=== PATIENT | female | born 1970 | race Caucasian/White ===

== ENCOUNTER 2019-01-08 10:41 | Outpatient (REF) | payer MEDICAID, SELFPAY ==
[2019-01-08 22:10] LABS: Abs Immature Grans 0.01 k/cumm (0.0-0.09); Absolute Basophil Count 0.02 k/cumm (0.0-0.2); Absolute Eosinophil Count 0.13 k/cumm (0.0-0.7); Absolute Lymphocyte Count 1.86 k/cumm (1.2-3.4); Absolute Monocyte Count 0.68 k/cumm (0.11-0.7); Absolute Neutrophil Count 4.34 k/cumm (1.2-6.7); Basophils % 0.3; Eosinophils % 1.8; HCT 50.5 % (36.0-46.0); HGB 16.9 g/dL (12.0-15.5); Immature Grans % 0.1; Lymphocytes % 26.4; Mean Corp. HGB Concentration 33.5 g/dL (32.0-36.0); Mean Corpuscular Hemoglobin 29.7 pg (27.0-33.0); Mean Corpuscular Volume 88.8 fL (80-95); Mean Platelet Volume 12.5 fL (8.0-11.0); Monocytes % 9.7; Neutrophils % 61.7; Platelet Count 179 x1000/uL (130-400); RBC 5.69 m/cumm (4.00-5.20); RBC Distribution Width 16.8 % (11.7-14.6); White Blood Cell Count 7.04 k/cumm (4.4-10.8)
[2019-01-08 22:51] LABS: ESR 16 MM/HR (0-20)
[2019-01-10 12:24] LABS: HIV-1/2 Ag & Ab Screen Negative (NEGAT)
== END 2019-01-08 11:01 ==
LOC: NCHCN 10:41
PROVIDERS: PCP Family Medicine; Visit Provider Registered Nurse
DX: R61 Generalized hyperhidrosis (principal); R63.4 Abnormal weight loss; R07.9 Chest pain, unspecified; Z11.4 Encounter for screening for human immunodeficiency virus [HIV]
CPT/HCPCS: 85652; 87389; 84443; 85025; 86140

== ENCOUNTER 2019-01-14 12:05 | Outpatient (REF) | payer MEDICAID, SELFPAY ==
--- NOTE | 2019-01-14 11:00 | PAPFT_PTH ---
PATIENT: Shawna Sheehan LOC: [facility] U#:[id number] AGE/SX: 48/F ROOM: RE01/14/[address]: Madeline Iniguez : 1970 BED: DIS: 01/14/2019 SPEC #: [id number] RECD: 01/15/19 12:44 STATUS: CHIO REAde #: [id number] TIMOTHY: 01/14/19 11:[address]: Madeline Iniguez DEPT: [facility] Cytology RECD BY: Salena Hood ENTERED: 01/15/19 12:44 SP TYPE: PAPFT ADIS DR: Ronak Mancia Tissues: 1 - CX/ENDOCX FOR PAP SMEARS Procedures: PAP THIN PREP/UVM Screening Comments: [id number] (VAGINAL HPV SENT TO [facility])
[2019-01-25 01:11] LABS: HPV High Risk type 16, PCR Negative (Negative); HPV High Risk type 18, PCR Negative (Negative); HPV other High Risk types, PCR Positive (Negative); Specimen Source VAGINAL
== END 2019-01-14 12:25 ==
LOC: NCHCN 12:05
PROVIDERS: PCP Family Medicine; Visit Provider Registered Nurse
DX: Z12.4 Encounter for screening for malignant neoplasm of cervix (principal); Z11.51 Encounter for screening for human papillomavirus (HPV)
CPT/HCPCS: 87624; 88142

== ENCOUNTER 2019-01-28 15:23 | Outpatient (REF) | payer MEDICAID, SELFPAY ==
[2019-01-28 21:53] LABS: HCT 51.7 % (36.0-46.0); HGB 17.2 g/dL (12.0-15.5); Mean Corp. HGB Concentration 33.3 g/dL (32.0-36.0); Mean Corpuscular Volume 90.2 fL (80-95); Mean Platelet Volume 12.2 fL (8.0-11.0); Platelet Count 152 x1000/uL (130-400); RBC 5.73 m/cumm (4.00-5.20); RBC Distribution Width 16.7 % (11.7-14.6); White Blood Cell Count 7.84 k/cumm (4.4-10.8)
== END 2019-01-28 15:43 ==
LOC: NCHCN 15:23
PROVIDERS: PCP Family Medicine; Visit Provider Registered Nurse
DX: R63.4 Abnormal weight loss (principal)
CPT/HCPCS: 85027

== ENCOUNTER 2019-04-08 12:12 | Outpatient (REF) | payer MEDICAID, SELFPAY ==
[2019-04-08 22:23] LABS: Abs Immature Grans 0.01 k/cumm (0.0-0.09); Absolute Basophil Count 0.02 k/cumm (0.0-0.2); Absolute Lymphocyte Count 2.02 k/cumm (1.2-3.4); Absolute Monocyte Count 0.67 k/cumm (0.11-0.7); Absolute Neutrophil Count 5.01 k/cumm (1.2-6.7); Basophils % 0.3; Eosinophils % 2.5; HCT 47.7 % (36.0-46.0); HGB 15.6 g/dL (12.0-15.5); Immature Grans % 0.1; Lymphocytes % 25.5; Mean Corp. HGB Concentration 32.7 g/dL (32.0-36.0); Mean Corpuscular Hemoglobin 30.3 pg (27.0-33.0); Mean Corpuscular Volume 92.6 fL (80-95); Mean Platelet Volume 12.2 fL (8.0-11.0); Monocytes % 8.4; Neutrophils % 63.2; Platelet Count 176 x1000/uL (130-400); RBC 5.15 m/cumm (4.00-5.20); RBC Distribution Width 16.6 % (11.7-14.6); White Blood Cell Count 7.93 k/cumm (4.4-10.8)
== END 2019-04-08 12:32 ==
LOC: NCHCN 12:12
PROVIDERS: PCP Family Medicine; Visit Provider Registered Nurse
DX: R10.9 Unspecified abdominal pain (principal); K57.90 Diverticulosis of intestine, part unspecified, without perforation or abscess without bleeding
CPT/HCPCS: 85025

== ENCOUNTER 2020-01-15 15:51 | Outpatient (REF) | payer MEDICAID, SELFPAY ==
[2020-01-15 20:58] LABS: TSH (W/Ref FT4) 2.16 uIU/mL (0.36-3.74)
[2020-01-19 12:15] LABS: Prolactin 6.5 ng/mL (See Table)
== END 2020-01-15 16:11 ==
LOC: NCHCN 15:51
PROVIDERS: PCP Family Medicine; Visit Provider Nurse Practitioner Community Health
DX: N64.52 Nipple discharge (principal)
CPT/HCPCS: 84146; 84443

== ENCOUNTER 2020-03-04 22:51 | Outpatient (REF) | payer MEDICAID, SELFPAY ==
[2020-03-04 21:11] LABS: Abs Immature Grans 0.02 k/cumm (0.0-0.09); Absolute Basophil Count 0.02 k/cumm (0.0-0.2); Absolute Lymphocyte Count 2.64 k/cumm (1.2-3.4); Absolute Monocyte Count 0.65 k/cumm (0.11-0.7); Absolute Neutrophil Count 4.74 k/cumm (1.2-6.7); Basophils % 0.2; Eosinophils % 3.6; HCT 48.3 % (36.0-46.0); HGB 16.2 g/dL (12.0-15.5); Immature Grans % 0.2 %; Lymphocytes % 31.5; Mean Corp. HGB Concentration 33.5 g/dL (32.0-36.0); Mean Corpuscular Hemoglobin 31.4 pg (27.0-33.0); Mean Corpuscular Volume 93.6 fL (80-95); Mean Platelet Volume 11.6 fL (8.0-11.0); Monocytes % 7.8; Neutrophils % 56.7; Platelet Count 187 x1000/uL (130-400); RBC 5.16 m/cumm (4.00-5.20); RBC Distribution Width 15.1 % (11.7-14.6); White Blood Cell Count 8.37 k/cumm (4.4-10.8)
[2020-03-04 21:55] LABS: ESR 13 mm/hr (0-20)
== END 2020-03-04 23:11 ==
LOC: NCHCN 22:51
PROVIDERS: PCP Family Medicine; Visit Provider Registered Nurse
DX: R79.89 Other specified abnormal findings of blood chemistry (principal); M54.2 Cervicalgia
CPT/HCPCS: 85652; 85007; 85025

== ENCOUNTER 2020-05-18 09:20 | Outpatient (REF) | payer MEDICAID, SELFPAY ==
[2020-05-18 21:45] LABS: Abs Immature Grans 0.01 10^3/uL (0.0-0.06); Absolute Basophil Count 0.06 10^3/uL (0.0-0.2); Absolute Eosinophil Count 0.12 10^3/uL (0.0-0.7); Absolute Lymphocyte Count 2.58 10^3/uL (1.2-3.4); Absolute Monocyte Count 0.97 10^3/uL (0.1-0.8); Absolute Neutrophil Count 4.91 10^3/uL (1.2-6.7); Basophils % 0.7; Eosinophils % 1.4; HCT 51.5 % (36.0-46.0); HGB 16.8 g/dL (11.2-15.7); Immature Grans % 0.1; Lymphocytes % 29.8; MCHC 32.6 % (32.0-36.0); MPV 11.6 fL (8.0-11.0); Monocytes % 11.2; Neutrophils % 56.8; Platelet Count 232 10^3/uL (130-400); RBC 5.42 10^6/uL (3.93-5.22); RDW 15.1 % (11.7-14.6); RDW-SD 53.2 fL; WBC 8.65 10^3/uL (4.4-10.8)
[2020-05-18 22:29] LABS: Vitamin B12 678 pg/mL (193-986)
[2020-05-20 12:43] LABS: Erythropoietin 13.8 mIU/mL (2.6 - 18.5)
[2020-05-21 12:15] LABS: JAK2 Result see interpretation
== END 2020-05-18 09:40 ==
LOC: NCHCN 09:20
PROVIDERS: PCP Registered Nurse; Visit Provider Registered Nurse
DX: E53.8 Deficiency of other specified B group vitamins (principal); R71.8 Other abnormality of red blood cells
CPT/HCPCS: 82668; 85027; 81270; 82607; 85007

== ENCOUNTER 2021-03-07 11:50 | Outpatient (REF) | payer MEDICAID, SELFPAY | END 2021-03-07 11:51 | disposition home or self-care (01) | LOC: NCHCN 11:50 | PROVIDERS: PCP Registered Nurse; Visit Provider Nurse Practitioner Community Health | DX: R30.0 Dysuria (principal) | CPT/HCPCS: 87077; 87086; 87186 ==

== ENCOUNTER 2021-03-15 11:31 | Outpatient (REF) | payer MEDICAID, SELFPAY | END 2021-03-15 11:32 | disposition home or self-care (01) | LOC: NCHCN 11:31 | PROVIDERS: PCP Registered Nurse; Visit Provider Nurse Practitioner Family | DX: R30.0 Dysuria (principal) | CPT/HCPCS: 87086 ==

== ENCOUNTER 2021-03-20 20:44 | Emergency (ER) | payer MEDICAID, SELFPAY ==
[2021-03-20 21:00] VITALS: BP 123/82; PULSE 83; RESP 16; TEMP 36.9; O2SAT 97
--- NOTE | 2021-03-20 21:00 | DI.CT_ITS ---
Exam(s) CT RENAL COLIC WO EXAM: CT RENAL COLIC WO CLINICAL HISTORY: bilateral flank pain, pyuria. TECHNIQUE: Imaging Protocol: Axial computed tomography images with coronal and sagittal reformatted images were created and reviewed. CONTRAST MATERIAL: Noncontrast COMPARISON: No exams were available for comparison FINDINGS: ABDOMEN: Lung Bases: Normal where visualized. Small fatty containing Bochdalek hernia posterior left diaphrag m. Liver: Normal attenuation. No measurable mass. Gallbladder and biliary tract: No radiodense calculus or dilation. Pancreas: Normal density, no calcifications or inflammatory process. Spleen: Normal. Kidneys: Normal size, contour and axis. Mild prominence renal pelves. Mild periureteral edema. No radiodense stones or obstructive uropathy. Right renal cyst. No suspicious masses seen. Adrenal glands: No masses seen. Abdominal Aorta: Abdominal portion non-dilated. Mild atherosclerotic changes. PELVIS: Bladder: Symmetric distention, no gross wall thickening. Bowel: No obstruction or bowel wall thickening. Normal appendix. Peritoneal cavity: No ascites, collection or mesenteric inflammatory response. Status post hysterecto my. Bones: Mild degenerative changes. IMPRESSION: Mild ureteral prominence and periureteral edema could indicate urinary tract infection. Pyelonephrit is not excluded without IV contrast. No evidence obstructing stones. RADIATION DOSE DELIVERED: 1,042.95mGy.cm Total DLP DATA REPOSITORY: All CT scans at this facility are submitted to the National Radiology Data Registry (NRDR) Dose Index Registry (DIR) with the [employer] (ACR). RADIATION OPTIMIZATION: All CT scans at this facility use at least one of these dose optimization te chniques: automated exposure control; mA and/or kV adjustment per patient size (includes targeted exa ms where dose is matched to clinical indication); or iterative reconstruction.
--- NOTE | 2021-03-20 21:03 | W.ED.GENAD ---
Discharge Plan Disposition Patient Disposition: HOME Condition: Good Discharge Details Clinical Impression: UTI (urinary tract infection) Primary Care Provider: Madeline Iniguez ED Provider: Kye Jackson Home Meds and New Rx's Prescriptions: New cephalexin 500 mg capsule 500 mg PO QID 10 Days Qty: 40 RF: 0 Continued atorvastatin 20 mg Tablet 20 mg PO DAILY RF: 0 propranolol 10 mg Tablet 1 mg PO DAILY RF: 0 omeprazole 20 mg Capsule,Delayed Release(Dr/Ec) 20 mg PO DAILY RF: 0 escitalopram oxalate [Lexapro] 20 mg Tablet 20 mg PO DAILY RF: 0 Discharge Instructions Instructions: Urinary Tract Infection in Women (ED) Additional Instructions: At this time you have evidence of a urinary tract infection. Please take the antibiotic as directed. Please continue taking the cranberry juice. Drink plenty of fluids throughout the day. If you notice any worsening of your symptoms, or any new symptoms such as vomiting, diarrhea, fever, chills, shortness of breath, chest pain, numbness, weakness, or fainting , please return immediately to the emergency department for reevaluation. Please follow up with your primary care provider as soon as possible for reassessment and reevaluation. As always, it was a pleasure participating in your medical care today. Referrals: Madeline Iniguez, [employer] [Primary Care Provider] - Medical Decision Making 50-year-old female with a past medical history of irritable bowel syndrome, GERD, previously surgically repaired umbilical hernia, previous hysterectomy, presents today for evaluation of bilateral flank pain, dysuria and urinary pressure and frequency. Patient states that 2 weeks ago she had symptoms of UTI, she was tested at a clinic, and was found to be positive for infection. She was started on ?Nitrofurantoin?, Took this for 5 days, and then had resolution of her symptoms. 4 days ago she had some blood noted in her urine that only occurred once, subsequently after that she again had return of pressure and frequency. She has had some associated chills. She admits to mild left lower quadrant abdominal pain as well as bilateral flank pain. She admits to mild vomiting and nausea. She denies any other complaints at this time. No other modifying factors. Physical exam demonstrates mild left lower quadrant tenderness with reproducible, bilateral flank tenderness on percussion. No evidence of an acute surgical abdomen. Urine is notably cloudy, differential is highest for return of her UTI, however bladder stone and her kidney stone is certainly of concern as well. Her tenderness is also atypical, diverticulitis that is included on the differential. We will get a CT scan, give her Toradol, gently rehydrate, monitor closely and reassess. 10:40 PM Laboratory work-up is returned, minimal white count at 10.9, no bandemia. Renal function stable, electrolytes stable, lipase normal. Urinalysis does show evidence of notable urinary tract infection, leuk esterase positive, nitrate negative. CT scan shows no evidence of kidney stone. There is prominence of the ureters suggestive of UTI/Cory. There is mild irritation of the sigmoid colon, this may represent mild colitis, or just incomplete distention. On reassessment the patient is feeling much better. Repeat abdominal exam shows no significant tenderness. Vital signs stable. She will be given 2 g of Rocephin here in the ED to start the treatment of her UTI, and a prescription for Keflex for home. Recommend Tylenol as needed for pain. Continued cranberry juice. Discussed red flags which to return. I have extensively reviewed the treatment plan and discharge instructions with the patient and their family. I have addressed all patient concerns at this time. The patient and family was made aware of what symptoms to monitor for that would warrant a return to the emergency department. Discussed the plan with the patient and family, they demonstrate verbal understanding and agreement with our assessment and plan at this time. The documentation in this chart was dictated using [employer] dictation software. Please excuse any dictation errors. FINDINGS: Lungs: Lung bases clear. Liver: Upper liver partially excluded from view. Visualized unenhanced liver grossly unremarkable. Gallbladder and bile ducts: Normal appearing gallbladder. No calcified gallstones. No biliary dilatation. Pancreas: Grossly unremarkable unenhanced pancreas. Spleen: Grossly unremarkable unenhanced spleen. Adrenal glands: Normal appearing adrenal glands. Kidneys and ureters: 1.6 cm right renal cyst. No radiopaque urinary tract stones. No hydronephrosis. Mild prominence of the ureters with faint hazy periureteral edema. Mildly prominent visualization of the urothelium in the renal pelves. Acute urinary tract infection? Clinical correlation recommended. Stomach and bowel: No oral contrast. Stomach partially decompressed. No small bowel dilatation to suggest obstruction. Colon largely well evacuated of formed fecal material. Fluid noted in the proximal colon. Apparent mural thickening through the collapsed descending and sigmoid colon. Artifact of incomplete distention suspected. Acute segmental colitis not excluded. Clinical correlation recommended. No evidence of focal acute diverticulitis. Appendix: Normal appendix. Intraperitoneal space: No gross ascites or free air. Vasculature: Normal caliber abdominal aorta. Lymph nodes: No pathologically enlarged mesenteric, retroperitoneal, or pelvic sidewall lymph nodes. Urinary bladder: Urinary bladder partially obscured but grossly unremarkable, as seen. Reproductive: Prior hysterectomy. Ovaries not identified, obscured if present. Correlation with surgical history recommended. Bones/joints: No acute fracture seen among the bones of the abdomen or pelvis. Soft tissues: Small Bochdalek's hernia on the left. Prior anterior abdominal wall repair. IMPRESSION: 1. Mild symmetric prominence of the ureters with periureteral edema. Mildly prominent visualization of the urothelium in the renal pelves. The appearance is subtle and; however, clinical correlation is recommended to assess the possibility of an acute urinary tract infection. Please note that renal parenchymal pathology such as pyelonephritis cannot be excluded in the absence of intravenous contrast. 2. No radiopaque urinary tract stones. Recent passage of a stone not excluded. 3. Apparent mural thickening through a collapsed segment of the descending and sigmoid colon. Artifact of incomplete distention is suspected although acute segmental colitis could probably have a similar appearance. Clinical correlation is recommended. Thank you for allowing us to participate in the care of your patient. Dictated and Authenticated by: Sami Nuno MD 03/20/2021 9:53 PM Eastern Time ([place] & [place]) HPI General Date/Time Provider Initiated Documentation: 03/20/21 20:47. HPI Narrative: 50-year-old female with a past medical history of irritable bowel syndrome, GERD, previously surgically repaired umbilical hernia, previous hysterectomy, presents today for evaluation of bilateral flank pain, dysuria and urinary pressure and frequency. Patient states that 2 weeks ago she had symptoms of UTI, she was tested at a clinic, and was found to be positive for infection. She was started on ?Nitrofurantoin?, Took this for 5 days, and then had resolution of her symptoms. 4 days ago she had some blood noted in her urine that only occurred once, subsequently after that she again had return of pressure and frequency. She has had some associated chills. She admits to mild left lower quadrant abdominal pain as well as bilateral flank pain. She admits to mild vomiting and nausea. She denies any other complaints at this time. No other modifying factors. Related Data Home Medications Medication Instructions Recorded Confirmed atorvastatin 20 mg PO DAILY 03/20/21 03/20/21 cephalexin 500 mg PO QID 10 Days #40 cap 03/20/21 escitalopram oxalate [Lexapro] 20 mg PO DAILY 03/20/21 03/20/21 omeprazole 20 mg PO DAILY 03/20/21 03/20/21 propranolol 1 mg PO DAILY 03/20/21 03/20/21 Previous Rx's Medication Instructions Recorded cephalexin 500 mg PO QID 10 Days #40 cap 03/20/21 Allergies Allergy/AdvReac Type Severity Reaction Status Date / Time No Known Allergies Allergy Unverified 03/20/21 21:02 General Stated Complaint: Urinary JAMES: 3 Review of Systems All systems reviewed & are unremarkable except as noted in HPI and below PFSH Social History Smoking/Tobacco Use Status: Current every day Smoking risk assessment performed?: Yes Alcohol Intake: current Alcohol Intake frequency: holidays/special occasions only Drug use: Occasionally Substance use type: marijuana Do you feel safe at home: Yes Do you feel safe in your relationship?: Yes Exam Narrative Exam Narrative: 1.Const: Well-nourished, Well-developed, appearing stated age 2.Eyes: PERRL, no conjunctival injection, and symmetrical lids. 3.ENT: Atraumatic external nose and ears. Moist MM. Neck: Symmetric, trachea midline, No thyromegaly. 4.CVS: +S1/S2, No murmurs or gallops. Peripheral pulses 2+ and equal in all extremities. Brisk capillary refill in all extremities. 5.RESP: Unlabored respiratory effort. Clear to auscultation bilaterally. No wheezes rales or rhonchi 6.GI: Soft, nondistended, mild tenderness in the left lower abdominal quadrant. Mild suprapubic pressure. Tenderness bilaterally in the flanks on percussion. 7.MSK: Normocephalic/Atraumatic, Extremities w/o deformity or ttp No cyanosis or clubbing, Normal movement of all extremities 8.Skin: Warm, Dry. No rashes or lesions. 9.Neuro: house supervisor II-XII grossly intact. Sensation grossly intact, no focal neurologic deficits. 10.Psych: (AAO) x3. Appropriate mood and affect Course Vital Signs Vital signs: Vital Signs Temperature 36.9 C 03/20/21 21:00 Pulse 83 03/20/21 21:00 Respiratory Rate 16 03/20/21 21:00 Blood Pressure 123/82 03/20/21 21:00 Pulse Oximetry 97 03/20/21 21:00 Temperature 36.9 C 03/20/21 21:00 Temperature Source Skin 03/20/21 21:00 Pulse 83 03/20/21 21:00 Respiratory Rate 16 03/20/21 21:00 Blood Pressure 123/82 03/20/21 21:00 Blood Pressure Position Sitting 03/20/21 21:00 Pulse Oximetry 97 03/20/21 21:00 Oxygen Delivery Method Room Air 03/20/21 21:00 Oxygen Flow Rate 0 03/20/21 21:00 Pain Level 8 03/20/21 21:00
[2021-03-20] MEDS: Ketorolac 30 MG/ML VIAL IVP (21:24)
[2021-03-20] MEDS: Lactated Ringers 1,000 ML 1000 ML IV (21:25)
[2021-03-20 21:35] LABS: Abs Immature Grans 0.02 10^3/uL (0.0-0.06); Absolute Basophil Count 0.04 10^3/uL (0.0-0.2); Absolute Eosinophil Count 0.12 10^3/uL (0.0-0.7); Absolute Lymphocyte Count 2.26 10^3/uL (1.2-3.4); Absolute Monocyte Count 0.93 10^3/uL (0.1-0.8); Absolute Neutrophil Count 7.58 10^3/uL (1.2-6.7); Basophils % 0.4; Eosinophils % 1.1; HCT 46.9 % (36.0-46.0); HGB 15.5 g/dL (11.2-15.7); Immature Grans % 0.2; Lymphocytes % 20.6; MCH 31.4 pg (27.0-33.0); MCV 94.9 fL (80-95); MPV 11.7 fL (8.0-11.0); Monocytes % 8.5; Neutrophils % 69.2; Nucleated RBC 0 %; Platelet Count 196 10^3/uL (130-400); RBC 4.94 10^6/uL (3.93-5.22); RDW 14.5 % (11.7-14.6); RDW-SD 51.1 fL; WBC 10.95 10^3/uL (4.4-10.8)
[2021-03-20 21:37] LABS: Bilirubin Negative (Negative); Blood Moderate (Negative); Clarity Sl Cloudy (Clear); Glucose Negative (Negative); Ketones Negative (Negative); Leukocyte Esterase Large (Negative); Nitrite Negative (Negative); Specific Gravity 1.015 (1.005-1.025); Urobilinogen 0.2 EU/dL (Up TO 0.2)
[2021-03-20 21:50] LABS: ALT 17 U/L (14-59); AST 8 U/L (15-37); Albumin 3.3 g/dL (3.4-5.0); Alkaline Phosphatase 120 U/L (46-116); Anion Gap 6.1 mmol/L (3-11); BUN 10 mg/dL (7-18); Bilirubin, Total 0.6 mg/dL (0.2-1.0); CO2 32.9 mmol/L (21.0-32.0); Chloride 103 mmol/L (98-107); Estimated GFR 59.18 (mL/min/1.73m2); Glucose 87 mg/dL (74-106); Lipase 98 U/L (73-393); Potassium 3.4 mmol/L (3.5-5.1); Sodium 142 mmol/L (136-145); Total Protein 7.1 g/dL (6.4-8.2)
[2021-03-20 21:51] LABS: Bacteria Few HPF (Negative); C & S Indicated? Yes; Casts Negative LPF (Negative); Crystals Negative HPF (Negative); Epithelial Cells Few HPF (Negative); Mucus Negative (Negative)
--- NOTE | 2021-03-20 21:54 | DI.VRAD_ITS ---
PROCEDURE INFORMATION: Exam: CT Abdomen And Pelvis Without Contrast Exam date and time: 03/20/2021 9:01 PM Age: 50 years old Clinical indication: Patient HX: Bilat flank pain, recent UTI, pyuria, PT states has had blood in urine TECHNIQUE: Imaging protocol: Computed tomography of the abdomen and pelvis without contrast. Radiation optimization: All CT scans at this facility use at least one of these dose optimization techniques: automated exposure control; mA and/or kV adjustment per patient size (includes targeted exams where dose is matched to clinical indication); or iterative reconstruction. COMPARISON: No relevant prior studies available. FINDINGS: Lungs: Lung bases clear. Liver: Upper liver partially excluded from view. Visualized unenhanced liver grossly unremarkable. Gallbladder and bile ducts: Normal appearing gallbladder. No calcified gallstones. No biliary dilatation. Pancreas: Grossly unremarkable unenhanced pancreas. Spleen: Grossly unremarkable unenhanced spleen. Adrenal glands: Normal appearing adrenal glands. Kidneys and ureters: 1.6 cm right renal cyst. No radiopaque urinary tract stones. No hydronephrosis. Mild prominence of the ureters with faint hazy periureteral edema. Mildly prominent visualization of the urothelium in the renal pelves. Acute urinary tract infection? Clinical correlation recommended. Stomach and bowel: No oral contrast. Stomach partially decompressed. No small bowel dilatation to suggest obstruction. Colon largely well evacuated of formed fecal material. Fluid noted in the proximal colon. Apparent mural thickening through the collapsed descending and sigmoid colon. Artifact of incomplete distention suspected. Acute segmental colitis not excluded. Clinical correlation recommended. No evidence of focal acute diverticulitis. Appendix: Normal appendix. Intraperitoneal space: No gross ascites or free air. Vasculature: Normal caliber abdominal aorta. Lymph nodes: No pathologically enlarged mesenteric, retroperitoneal, or pelvic sidewall lymph nodes. Urinary bladder: Urinary bladder partially obscured but grossly unremarkable, as seen. Reproductive: Prior hysterectomy. Ovaries not identified, obscured if present. Correlation with surgical history recommended. Bones/joints: No acute fracture seen among the bones of the abdomen or pelvis. Soft tissues: Small Bochdalek's hernia on the left. Prior anterior abdominal wall repair. IMPRESSION: 1. Mild symmetric prominence of the ureters with periureteral edema. Mildly prominent visualization of the urothelium in the renal pelves. The appearance is subtle and; however, clinical correlation is recommended to assess the possibility of an acute urinary tract infection. Please note that renal parenchymal pathology such as pyelonephritis cannot be excluded in the absence of intravenous contrast. 2. No radiopaque urinary tract stones. Recent passage of a stone not excluded. 3. Apparent mural thickening through a collapsed segment of the descending and sigmoid colon. Artifact of incomplete distention is suspected although acute segmental colitis could probably have a similar appearance. Clinical correlation is recommended. Dictated and Authenticated by: Sami Nuno MD. Ordering:ALLYSON Fishman MD
[2021-03-20] MEDS: cefTRIAXone 2 GM/50 ML BAG IVPB (22:30)
[2021-03-20 23:00] VITALS: BP 121/82; PULSE 88; RESP 16; TEMP 36.6; O2SAT 95
== END 2021-03-20 22:55 | disposition home or self-care (01) ==
PROVIDERS: Emergency Provider Student in an Organized Health Care Education/Training Program; PCP Registered Nurse
DX: N39.0 Urinary tract infection, site not specified (principal); B96.20 Unspecified Escherichia coli [E. coli] as the cause of diseases classified elsewhere
CPT/HCPCS: 80053; 83690; 87077; 96361; 96365; 96375; 99284; 74176; 81003; 81015; 85025; 87086; 87186; 99283; J1885

== ENCOUNTER 2021-04-13 16:01 | Outpatient (REF) | payer MEDICAID, SELFPAY ==
[2021-04-13 21:56] LABS: Anion Gap 7.1 mmol/L (3-11); BUN 10 mg/dL (7-18); CO2 31.9 mmol/L (21.0-32.0); CREATININE 0.8 mg/dL (0.55-1.02); Calculated LDL 98 mg/dL (<100); Chloride 103 mmol/L (98-107); Cholesterol 167 mg/dL (<200); Glucose 92 mg/dL (74-106); HDL Cholesterol 40 mg/dL (40-60); Potassium 4.7 mmol/L (3.5-5.1); Sodium 142 mmol/L (136-145); Triglyceride 147 mg/dL (<150)
== END 2021-04-13 16:02 | disposition home or self-care (01) ==
LOC: NCHCN 16:01
PROVIDERS: PCP Registered Nurse; Visit Provider Registered Nurse
DX: E87.6 Hypokalemia (principal); R30.0 Dysuria; Z13.220 Encounter for screening for lipoid disorders; Z00.00 Encounter for general adult medical examination without abnormal findings
CPT/HCPCS: 80048; 80061; 87077; 87086; 87186

== ENCOUNTER 2021-06-27 01:42 | Outpatient (CLI) | payer MEDICAID, SELFPAY ==
[2021-06-30 12:02] LABS: Cotinine 378 ng/mL (<5.0); Nicotine 306 ng/mL (<5.0); Nornicotine 17 ng/mL (<2.0)
== END 2021-06-27 01:43 | disposition home or self-care (01) ==
PROVIDERS: PCP Registered Nurse; Visit Provider Student in an Organized Health Care Education/Training Program
DX: Z72.0 Tobacco use (principal)
CPT/HCPCS: 80323

== ENCOUNTER 2021-06-29 03:24 | Outpatient (CLI) | payer MEDICAID, SELFPAY ==
[2021-06-29 12:39] LABS: Source Nasal/Nares
[2021-06-30 05:10] LABS: COVID-19 PCR Negative (Negative)
== END 2021-06-29 03:25 | disposition home or self-care (01) ==
LOC: LBO 03:24
PROVIDERS: PCP Registered Nurse; Visit Provider Student in an Organized Health Care Education/Training Program
DX: Z20.822 Contact with and (suspected) exposure to COVID-19 (principal)
CPT/HCPCS: 87635

== ENCOUNTER 2021-07-01 06:03 | Day surgery (SDC) | payer MEDICAID, SELFPAY ==
[2021-07-01] VITALS (10 sets, daily range): BP systolic 108–137; BP diastolic 60–80; PULSE 57–71; RESP 11–20; TEMP 35.9–36.6; O2SAT 95–100; BMI 33.7
[2021-07-01] MEDS: Lactated Ringers 1,000 ML 100 ML IV (06:48)
--- NOTE | 2021-07-01 06:51 | W.ANESPRE ---
General Info Date of Service Date Performed: 07/01/21 Height: 5 ft 7 in Weight: 97.7 kg Body Mass Index (BMI): 33.7 Surgical Procedure: Operation Date: 07/01/21 07:40 Proposed Procedures Side Surgeon p SHOULDER arthroscopy with extensive debridement,subacromial decompression, distal clavicle exc Right Trevor Townsend MD s Shoulder Bicep Tenodesis Right Trevor Townsend MD Meds Allergies and Home Medications Allergies Allergy/AdvReac Type Severity Reaction Status Date / Time venom-honey bee Allergy Severe Verified 06/29/21 11:13 Home Medication Medication Instructions Recorded atorvastatin 20 mg PO HS 03/20/21 escitalopram oxalate [Lexapro] 20 mg PO HS 03/20/21 omeprazole 20 mg PO HS 03/20/21 propranolol 1 mg PO HS 03/20/21 epinephrine 0.3 mg/0.3 mL 0.3 mg IM ONCE 06/15/21 injection, auto-injector Current Visit Medications: Current Medications Generic Name Dose Route Start Last Admin Trade Name Freq PRN Reason Stop Dose Admin Ringer's Solution 1,000 mls @ 100 mls/hr 07/01/21 06:00 07/01/21 06:48 IV 07/30/21 23:59 100 mls/hr INFUSION NII Administration Cefazolin Sodium/Dextrose 2 gm in 50 mls @ 100 mls/hr 07/01/21 06:00 Ancef Duplex IVPB 07/30/21 23:59 PREOP NII IV Miscellaneous Supplies 1 each 07/01/21 06:00 Iv Access IV 07/30/21 23:59 DIRECTED NII Sodium Chloride 0 ml 07/01/21 06:00 Normal Saline Flush 10 Ml Syr IV 07/30/21 23:59 PRN PRN Sodium Chloride 0 ml 07/01/21 06:00 Normal Saline 10 Ml Vial IJ 07/30/21 23:59 DIRECTED PRN Sterile Water 0 ml 07/01/21 06:00 Water,Injection,Sterile 10 Ml Vial IJ 07/30/21 23:59 DIRECTED PRN PFSH Active Problems Active Problems: Problem Status Onset Code UTI (urinary tract infection) N39.0 Smoking trying to quit Z72.0 Traumatic tear of right rotator cuff ~11/2020 S46.011A Bursitis of right shoulder M75.51 Impingement syndrome of right shoulder M75.41 AC joint pain M25.519 Tendonitis of long head of biceps brachii of right shoulder M75.21 Medical History Medical History Anxiety and depression Asthma Chiari malformation type I COPD (chronic obstructive pulmonary disease) Fibromyalgia GERD (gastroesophageal reflux disease) HLD (hyperlipidemia) PTSD (post-traumatic stress disorder) RLS (restless legs syndrome) Surgical History Surgical History History of umbilical hernia repair Hx of hysterectomy Tobacco Smoking/Tobacco Use Status: Former Tobacco Use Alcohol Alcohol Intake: current Alcohol intake frequency: holidays/special occasions only Substance Use Substance use: Occasionally Substance use type: marijuana Details: last used 2 days ago. Vital Signs and Lab Results Vital Signs Most Recent Vital Signs in EMR: Most Recent Vital Signs Temp Pulse Resp BP Pulse Ox 35.9 C L 57 L 18 122/80 95 07/01/21 06:16 07/01/21 06:16 07/01/21 06:16 07/01/21 06:16 07/01/21 06:16 Lab Results Blood Type / Crossmatch: No Data to Display Complete Blood Count: No Data to Display Complete Metabolic Panel: No Data to Display Liver Function Panel: No Data to Display Coagulation Panel: No Data to Display Cardiac Panel: No Data to Display Arterial Blood Gas: No Data to Display Venous Blood Gas: No Data to Display Pancreas Panel: No Data to Display Thyroid Panel: No Data to Display Infectious Disease: Coronavirus (COVID-19)(PCR) Negative (Negative) 06/29/21 10:05 06/29/21 Coronavirus 2019 Source Nasal/Nares 06/29/21 10:05 06/29/21 Blood Cultures: No Data to Display Toxicology Panel: No Data to Display Panel: No Data to Display Anesthesia Assessment and Plan Anesthesia History Personal History: No History of Anesthesia Complications Family History: No Family History of Anesthesia Complications Exercise Tolerance Exercise Tolerance: Metabolic Equivalents>4 Pertinent Negatives Pertinent Negatives: No Symptoms of GERD, No Major Cardiovascular Symptoms or Complaints, No Major Pulmonary Symptoms or Complaints (Well controlled asthma, smoker) and No History of CVA/TIA Cardiac & Pulmonary Exam Cardiac Exam: Normal S1/S2 Heart Sounds Pulmonary Exam: Clear Bilateral Breath Sounds Airway Exam Known Difficult Airway: No Mallampati Class: 2 Mouth Opening: Normal (> 3cm) Thyromental Distance: Greater than 3 cm Neck Range of Motion: Full ROM Neck Circumference: Normal Teeth Condition: Other ( Very poor dentition, most teeth missing, 1 tooth on top #11, 2-3 teeth on bottom front) ASA Classification ASA Score: ASA 2 Emergency Case?: No NPO Status NPO Status: NPO Clears >2 hours, Solids >8 hours Status Status: History of Hysterectomy Anesthesia Plan Resuscitation Status: Full Code Anesthesia Technique: General Anesthesia Airway Planned: Endotracheal Tube Pain Management: Surgeon and patient request nerve block Monitors Used: Standard Monitors
[2021-07-01] MEDS: ceFAZolin 2 GM/50 ML BAG IVPB (07:50)
--- NOTE | 2021-07-01 08:07 | W.ANESNERVE ---
Nerve Block Single Injection Procedure Date and Time Date Performed: 07/01/21 Procedure Start: 07:28 Location Where Procedure Performed Procedure Location: PACU Reason Performed: Postoperative Analgesia Requesting Provider: Trevor Townsend Timeout Performed Timeout Performed: Yes Monitoring Used ECG, Blood Pressure and SpO2 Sterility Sterility: Hand Hygiene, Surgical Cap, Surgical Mask, Sterile Gloves, Sterile Drape/Sheet, Eye Protection and Chlorhexidine Sedation Given During Procedure Sedation Given (Indicate Dose Given): Versed IV Dose:: 2 mg Patient Mental Status Patient Mental Status: Sedate with meaningful communication Nerve Block 1st Nerve Block: Laterality: Right Block Type: Interscalene Needle / Catheter Used: 100mm SonoPlex II Local Anesthetic Bolus (Indicate Dose Given): Lidocaine used for local infiltration of skin, Injected in 3-5ml increments after negative blood aspiration, Bupivacaine 0.5% Dose:: 10 cc and Exparel Dose:: 10 cc Additives (Indicate Dose Given): None Ultrasound: Sterile probe cover and gel used Ultrasound Image Saved?: Yes Nerve Stimulator: Not Used Paresthesia: None Procedure Tolerated: No Complications and Patient tolerated well Procedure Outcome: Successful Performed By: Krish Cano
[2021-07-01] MEDS: EPINEPHrine 30 MG/30 ML VIAL (08:59)
--- NOTE | 2021-07-01 10:15 | W.PM.DSUDISC ---
Discharge Plan Disposition Patient Disposition: HOME Condition: Stable Discharge Details Reason For Visit: Right shoulder surgery Attending Provider: Trevor Townsend Primary Care Provider: Madeline Iniguez Home Meds and New Rx's Prescriptions: New aspirin 81 mg tablet,delayed release (DR/EC) 81 mg PO DAILY 14 Days Qty: 14 RF: 0 naproxen 250 mg tablet 250 - 500 mg PO BID PRN (Reason: Moderate pain or swelling) Qty: 60 RF: 0 oxycodone 5 mg tablet 5 - 10 mg PO Q4H PRN (Reason: moderate to severe pain) Qty: 22 RF: 0 Continued epinephrine [EpiPen] 0.3 mg/0.3 mL auto-injector 0.3 mg IM ONCE RF: 0 atorvastatin 20 mg Tablet 20 mg PO HS RF: 0 propranolol 10 mg Tablet 1 mg PO HS RF: 0 omeprazole 20 mg Capsule,Delayed Release(Dr/Ec) 20 mg PO HS RF: 0 escitalopram oxalate [Lexapro] 20 mg Tablet 20 mg PO HS RF: 0 Discharge Instructions Additional Instructions: Surgery: Shoulder arthroscopy withrotator cuff repair, biceps tenodesis, extensive debridement, distal clavicle excision, and subacromial decompression. Activity: For 6 weeks, you should keep your arm at your side in a neutral position at all times except for physical therapy. Do not try to lift or raise your arm using your own muscles. You should use the sling whenever you are out of the house. You may have to adjust the abduction pillow or remove it for comfort. At home it is best to remove the sling and rest the arm on a pillow at your side or support the operative side with your other hand. You may allow the arm to dangle at your side. A physical therapy prescription will be sent electronically to begin in 2-3 weeks. Prescriptions: Aspirin 81 mg take 1 daily to prevent a blood clot for 2 weeks Naproxen 250 mg take 1-2 every 12 hours with a meal as needed for moderate pain Oxycodone 5 mg take 1-2 every 4-6 hours as needed for severe pain You may use [id number] Tylenol (acetaminophen) as needed for mild pain. These pain medications may be taken all at once or in different combinations as needed. Also, recommend Colace (docusate) as a stool softener as surgery and pain medicine cause constipation. Dressings: Remove shoulder bandage after 3 days. Leave the sticky Steri-Strips in place until they fall off or remove them after you shower. Cover the incisions with Band-Aids or leave them open to air. You may shower after 5 days. Follow-up: 10-[address] Townsend You may take off the leg compression stockings this evening at home. You may also leave them on a few days longer if you have a history of leg swelling or edema. Let us know right away if you develop any redness, drainage, fevers, chest pain, or trouble breathing. Do not drink alcohol or drive for at least 24 hours after anesthesia. Please call the office during business hours with any questions or concerns. Referrals: Trevor Townsend MD [ [facility] STAFF PHYSICIAN] - Discharge Orders Discharge Orders: Discharge Order (Routine); Ordered 07/01/21 Ordered By: Trevor Townsend DS: Diagnosis Discharge Diagnosis (1) Traumatic tear of right rotator cuff: Status: Acute (2) Bursitis of right shoulder: Status: Acute (3) Impingement syndrome of right shoulder: Status: Acute (4) AC joint pain: Status: Acute (5) Tendonitis of long head of biceps brachii of right shoulder: Status: Acute
[2021-07-01] MEDS: fentaNYL 100 MCG/2 ML VIAL IVP ×2 (10:25→10:35)
[2021-07-01] MEDS: HYDROmorphone 2 MG/ML VIAL IVP ×2 (10:44→10:49)
[2021-07-01] MEDS: Normal Saline 10 ML VIAL IJ (10:45)
[2021-07-01] MEDS: HYDROmorphone 2 MG/ML VIAL ×2 (10:59→11:09)
[2021-07-01] MEDS: oxyCODONE 5 MG TAB PO (12:04)
--- NOTE | 2021-07-01 12:31 | W.ANESPOSTOP ---
Postoperative Evaluation Date, Time and Location Date Performed: 07/01/21 Time Performed: 12:32 Patient Location: Day Surgery Unit Vital Signs Most Recent Imported Vital Signs: Most Recent Vital Signs Temp Pulse Resp BP Pulse Ox 36.3 C L 63 16 125/62 96 07/01/21 12:06 07/01/21 12:06 07/01/21 12:06 07/01/21 12:06 07/01/21 12:06 Pain Score Most Recent Pain Score: Most Recent Pain Score Pain Level 6 07/01/21 12:06 Assessment Mental Status: Awake (Alert & Oriented to Patient Baseline) Airway and Respiratory Function: Patent airway with normal (patient baseline) respiratory exam Cardiovascular Function: Hemodynamically Stable Hydration Status: Adequately Hydrated Nausea & Vomiting: No Nausea or Vomiting Pain: Pain is Moderate or Severe (Discussed icing and oral pain med use. ) Postoperative Pain Management: Pain being addressed with medication Peripheral Nerve Block: Regional nerve block not resolved at time of post operative discharge Postoperative Comments:: Discomfort in distal biceps area only.
--- NOTE | 2021-07-01 14:22 | ROE_ITS ---
Date of service: 07/01/21 Time of Service: 07:30 Operative Note Operative Note DATE OF PROCEDURE: 07/01/21 PRE-OP DIAGNOSIS: Right: 1. Rotator cuff tear 2. LHB tendinopathy 3. Bursitis 4. Impingement 5. AC joint pain POST-OP DIAGNOSIS: same PROCEDURE: Right: 1. Rotator cuff repair, CPT# 67591. This involved repair of the supraspinatus using anchors and sutures to reattach the rotator cuff back to the footprint of the greater tuberosity. 2. Arthroscopic biceps tenodesis, CPT# 08415. This involved arthroscopically suturing and reattaching the long head of the biceps tendon to the proximal humerus at the superior margin of the bicipital groove with a screw at the correct tension. 3. Extensive debridement, CPT# 59773. This involved using arthroscopic hand instruments, power instruments, and radiofrequency instruments to release the long head of the biceps tendon and debride areas of labral tearing, partial rotator cuff tearing, synovitis, and chondromalacia about the greater tuberosity within the glenohumeral joint anteriorly, superiorly and posteriorly. 4. Subacromial decompression with partial acromioplasty, CPT# 10772. This involved using arthroscopic power instruments and a radiofrequency wand to complete a bursectomy and smooth bone spurs on the undersurface of the acromion. 5. Arthroscopic distal clavicle excision, CPT# 25862. This involved arthroscopically exposing the underside of the acromioclavicular joint, smoothing out bone spurs, and removing a few millimeters of the distal clavicle so there was no bone left impinging on the rotator cuff or acromion. The pharmacy sales assistant was medically required in order to help assist in techniques above, which require positioning the arm, holding the arthroscope, and manipulating multiple instruments and sutures at the same time. This cannot be done without the help of an experienced pharmacy sales assistant. SURGEON: Trevor Townsend [employer] SALES REPRESENTATIVE: Barbra Coppola ANESTHESIA TYPE: General LMA/ETT and Primary Nerve Block Refer to Anesthesia Record ESTIMATED BLOOD LOSS: 5 PATHOLOGY: none sent COMPLICATIONS: None Patient was transported to: PACU Patient's condition: stable Implants: Arthrex: 4.75mm SwiveLocks x 5 (1 Knotless) Indications: The patient was diagnosed with the above conditions and appropriately indicated for surgical intervention. Please see complete medical record for details. Findings: Exam under anesthesia: Full range of motion, no instability Glenohumeral joint: Significant anterior and superior synovitis. Intact subscapularis with significant injection upper border. Intact M GH L and largely intact anterior and superior labrum. Significant hemorrhagic injection intra-articular long head biceps tendon as well as down the bicipital groove. Full-thickness retracted and delaminated supraspinatus rotator cuff tear starting at the rotator interval and continuing with small partial involvement of the articular infraspinatus. Largely intact articular cartilage. Subacromial space: Significant bursitis. Narrowed acromiohumeral interval from lateral acromial hook. Cystic bursa with hemorrhagic inflammation about site of prior distal clavicle open excision with hypermobile distal clavicle and significant inferior underhanging and impinging on the rotator cuff osteophyte bone spurring. Chronic changes about greater tuberosity including softening and scar tissue with bursal adhesions. Procedure Description: In the operating room, general anesthesia was induced. Bilateral shoulders were examined. The patient was positioned in the beachchair position. All bony prominences were well-padded. Preoperative antibiotics were administered. The shoulder was prepped and draped in the usual sterile fashion. The correct patient, procedure, and side of the procedure were all verified prior to incision. Starting through the posterior portal a standard complete diagnostic arthroscopy was performed of the glenohumeral joint including inspection of the long head of the biceps, anterior and superior labrum, subscapularis tendon, supraspinatus and infraspinatus tendons, and axillary recess. The glenoid and humeral head cartilage as well as the posterior labrum were inspected from an anterior viewing portal. Significant findings and interventions noted above. An all-arthroscopic biceps tenodesis was prepared through the anterior portal using a Loop N Tack method with a SutureTape FiberLink cinched around and through the tendon. The biceps was tenotomized from the labrum and repair suture withdrawn out anteriorly for later combined fixation with the anterior medial row supraspinatus repair anchor. Starting through the posterior portal, the arthroscope was directed into the subacromial space. A lateral 50 yard line lateral portal was created. A combination of power instruments and a radiofrequency ablator were used to debride bursitis anteriorly, posteriorly, and laterally as well as expose and minimally smooth the undersurface of the acromion. The coracoacromial ligament was preserved. The bursectomy was completed viewing laterally and working from posteriorly and the rotator cuff was thoroughly inspected with findings noted above. The anterior portal was redirected towards the undersurface of the AC joint. A shaver and electrocautery device were used to significant cystic and pathologic soft tissue from the undersurface of the AC joint from the prior surgery. The distalmost aspect of the distal clavicle was enlarged, downward sloping, and impinging on the rotator cuff and acromion, which was then removed and bone edge smoothed. Care was taken to ensure that proper amount of bone was removed and there was no engaging bone left behind. The distal aspect the clavicle was then coagulated with the radiofrequency wand as to prevent recurrence bone spur formation. Cannulas were inserted at the superior anterior lateral and superior posterior lateral margins of the acromion as well as at the lateral 50 yard line portal. The rotator cuff tear was inspected and debrided of frayed tissue at the margins clearly exposing the full-thickness moderately retracted supraspinatus tear. The greater was tuberosity cleared of fibrous tissue over the footprint, and lightly decorticated to optimize bone tendon healing, and the bursectomy was extended laterally. The undersized punch due to questionable bone quality was used to localize placement the first medial row SwiveLock anchor starting anteriorly. The anchor was preloaded with fiber tapes for supraspinatus repair as well as the biceps tenodesis repair suture and secured down to the anterior medial margin with the biceps tendon appropriate withdrawn through superior aspect of the groove. The biceps was securely fixated and tenodesed. These fiber tapes were then passed through the appropriate anterior medial margin of the supraspinatus tendon. This process was repeated for a posterior medial row swivel lock anchor again passing fiber tapes for repair through the appropriate margin the posterior supraspinatus near the junction of the infraspinatus. Owing to the size and chronicity of the tear, decision was made to proceed with modified middle row repair incorporating 3 fiber link sutures there each passed using a self retrieving suture passer between the anterior and posterior medial row anchors. Reduction of the supraspinatus over the greater tuberosity footprint was achieved with these 3 links to a middle row swivel lock anchor. Lastly, a fiber tape from the anterior and posterior anchors was brought to an anterior lateral row anterior anchor and this process repeated for the posterior lateral row anchor achieving speed bridge FiberTape compression over the reduced rotator cuff repair, which nearly completely covered the [place] footprint. The posterior lateral anchor was a knotless swivel lock and the self retrieving suture passer was used to pass the repair suture in a simple stitch fashion through the junction of the supraspinatus repair and the infraspinatus for added fixation, which was securely achieved with the knotless repair mechanism. The repair was inspected through shoulder range of motion and found to be stable with secure fixation. All suture tails were appropriately cut. The shoulder was drained of arthroscopic fluid. All portal sites were copiously irrigated. These incisions were closed using 3-0 Monocryl in a buried fashion and then covered with Mastisol, Steri-Strips, Xeroform, dry gauze, and ABDs. The dressings were covered and secured with Medipore tape. The operative extremity was placed into a sling for immobilization. The patient awoke from anesthesia without complication and was transferred to the recovery room in a stable condition.
== END 2021-07-01 12:50 | disposition home or self-care (01) ==
PROVIDERS: PCP Registered Nurse; Visit Provider Student in an Organized Health Care Education/Training Program
PROC: (CPT 29827; principal; 2021-07-01 07:30)
PROC: (CPT 23430; 2021-07-01 07:30)
DX: S46.011A Strain of muscle(s) and tendon(s) of the rotator cuff of right shoulder, initial encounter (principal); M75.41 Impingement syndrome of right shoulder; M75.51 Bursitis of right shoulder; M75.21 Bicipital tendinitis, right shoulder; X58.XXXA Exposure to other specified factors, initial encounter
CPT/HCPCS: 29827; 29826; 29823; 29824; 29828; 76942; J0131; J0690; J1100; J1885; J2001; J2250; J2405; J3010

== ENCOUNTER 2022-08-07 15:14 | Outpatient (REF) | payer MEDICAID, SELFPAY | END 2022-08-07 15:15 | disposition home or self-care (01) | LOC: NCHCN 15:14 | PROVIDERS: PCP Registered Nurse; Visit Provider Family Medicine | DX: N39.0 Urinary tract infection, site not specified (principal) | CPT/HCPCS: 87077; 87086; 87186 ==

== ENCOUNTER 2023-02-14 21:48 | Outpatient (REF) | payer MEDICAID, SELFPAY ==
[2023-02-14 21:14] LABS: HGB 16.4 g/dL (11.2-15.7); MCH 31.1 pg (27.0-33.0); MCHC 32.8 % (32.0-36.0); MCV 95 fL (80-95); MPV 10.9 fL (8.0-11.0); Platelet Count 206 10^3/uL (130-400); RBC 5.28 10^6/uL (3.93-5.22); RDW 15.5 % (11.7-14.6); RDW-SD 54.5 fL; WBC 8.02 10^3/uL (4.4-10.8)
[2023-02-14 21:32] LABS: ALT 18 U/L (14-59); AST 15 U/L (15-37); Albumin 3.4 g/dL (3.4-5.0); Alkaline Phosphatase 120 U/L (46-116); Anion Gap 3.2 mmol/L (3-11); BUN 10 mg/dL (7-18); Bilirubin, Total 0.6 mg/dL (0.2-1.0); CO2 33.8 mmol/L (21.0-32.0); Calcium 8.9 mg/dL (8.5-10.1); Chloride 102 mmol/L (98-107); Estimated GFR 68.63 (mL/min/1.73m2); Glucose 107 mg/dL (74-106); Potassium 3.9 mmol/L (3.5-5.1); Sodium 139 mmol/L (136-145); TSH 2.19 uIU/mL (0.36-3.74); Total Protein 7.4 g/dL (6.4-8.2)
== END 2023-02-14 21:49 | disposition home or self-care (01) ==
LOC: NCHCN 21:48
PROVIDERS: PCP Registered Nurse; Visit Provider Registered Nurse
DX: R55 Syncope and collapse (principal); R56.9 Unspecified convulsions; Z79.899 Other long term (current) drug therapy
CPT/HCPCS: 80053; 85027; 84443

== ENCOUNTER 2023-08-20 13:56 | Outpatient (REF) | payer MEDICAID, SELFPAY ==
[2023-08-20 21:46] LABS: Hemoglobin A1C 5.6 % (<5.7)
[2023-08-20 22:05] LABS: Vitamin D 25 Total 35.4 ng/mL (30-100)
[2023-08-20 22:08] LABS: Calculated LDL 114 mg/dL (<100); Cholesterol 178 mg/dL (<200); HDL Cholesterol 42 mg/dL (40-60); Triglyceride 111 mg/dL (<150); Vitamin B12 345 pg/mL (193-986)
== END 2023-08-20 13:57 | disposition home or self-care (01) ==
LOC: NCHCN 13:56
PROVIDERS: PCP Registered Nurse; Visit Provider Family Medicine
DX: E78.5 Hyperlipidemia, unspecified (principal); R73.9 Hyperglycemia, unspecified; E55.9 Vitamin D deficiency, unspecified; E53.9 Vitamin B deficiency, unspecified
CPT/HCPCS: 80061; 82306; 82607; 83036